=== PATIENT | female | born 1985 | race Two or more races ===

== ENCOUNTER 2023-04-14 06:22 | Inpatient (IN) | payer OTHER ==
[~2023-04-14] VITALS: Ht 170.2 cm; Wt 89.8 kg
[2023-04-14] MEDS ORDERED: VALTREX1000 MG (07:02)
[2023-04-14] MEDS ORDERED: PRENATAL TABLE1 EAC1 PO (07:03)
== END 2023-04-17 16:32 | disposition home or self-care (01) | DRG 806 ==
LOC: LDR 06:22 → OB/GYN 04-15 19:53
PROVIDERS: ADMIT Obstetrics & Gynecology; ATTEND Obstetrics & Gynecology
PROC: 4A1HXCZ Monitoring of Products of Conception, Cardiac Rate, External Approach (ICD-10-PCS; 2023-04-14)
PROC: 10E0XZZ Delivery of Products of Conception, External Approach (ICD-10-PCS; principal; 2023-04-15)
PROC: 0HQ9XZZ Repair Perineum Skin, External Approach (ICD-10-PCS; 2023-04-15)
PROC: 3E033VJ Introduction of Other Hormone into Peripheral Vein, Percutaneous Approach (ICD-10-PCS; 2023-04-15)
DX: O70.0 First degree perineal laceration during delivery (principal); O98.52 Other viral diseases complicating childbirth; Z37.0 Single live birth; R89.4 Abnormal immunological findings in specimens from other organs, systems and tissues; Z3A.40 40 weeks gestation of pregnancy; Z20.822 Contact with and (suspected) exposure to COVID-19